=== PATIENT | female | born 1990 | race Two or more races ===

== ENCOUNTER 2024-05-10 10:28 | Inpatient (IN) | payer MEDICAID, SELFPAY ==
[2024-05-10] VITALS (26 sets, daily range): BP systolic 113–135; BP diastolic 50–80; PULSE 68–100; RESP 16–23; TEMP 36.6–36.9; O2SAT 96–99; BMI 44.5
[2024-05-10] MEDS: RINGERS LACTATED 1000 ML 1,000 ML 100 ML IV ×2 (11:23→12:12)
[2024-05-10 11:24] LABS: Amphetamine/Metham Scrn,Ur OB Negative (Negative); Benzoylecgonine Screen, Ur OB Negative (Negative); Opiate Screen,Urine OB Negative (Negative); THC Screen,Urine OB Negative (Negative)
[2024-05-10 11:35] LABS: Basophils % (Auto) 0 % (0-2.5); Eosinophils # (Auto) 0.2 Thou/mm3 (0.0-0.5); Eosinophils % (Auto) 2 % (0-10); Hematocrit 29.2 % (36.0-46.0); Hemoglobin 9.2 g/dL (12.0-16.0); Immature Granulocytes % (Auto) 1 % (0-0); Immature Granulocytes Auto 0.06 Thou/mm3 (0.00-0.00); Lymphocytes % (Auto) 20 % (10-50); Mean Corpuscular HGB Conc 31.5 g/dl (31.0-37.0); Mean Corpuscular Hemoglobin 23.9 pg (25.0-35.0); Mean Corpuscular Volume 76 fL (80-100); Monocytes # (Auto) 0.6 Thou/mm3 (0.0-0.8); Monocytes % (Auto) 6 % (0-12); Neutrophils % (Auto) 71 % (37-80); Nucleated Red Blood Cell % 0 /100 WBC (0); Platelet Count 301 Thou/mm3 (140-440); RDW Standard Deviation 44.1 fL (36.4-46.3); Red Blood Count 3.85 Miln/mm3 (4.00-5.20); White Blood Count 9.9 Thou/mm3 (3.6-11.0)
--- NOTE | 2024-05-10 11:58 | PD.LDHP ---
Documentation for date of: 05/10/24 OB Labor/Induct. HPI History of Present Illness : 3 Term pregnancies: 2 pregnancies: 0 Living children: 2 History of Abortions: Spontaneous and Elective: 0 History of sections: Yes (x 3) History of : No Comments: 33 y/o @39w2d, here for Repeat low transverse Csection. Patient denied any contraction , leaking or bleeding . Previous 3 c sections done at term. Didnot sign any sterilisation consents as she was undecided History of Present Dating criteria: LMP confirmed by 1st trimester US Adequate Care: Yes Abnormal ultrasound findings: anatomy wnl posterior placenta Labs Labs: Positive: Group Beta Strep and Negative: Hepatitis B, HIV, Chlamydia and Gonorrhea Past Medical History Surgical History SURGICAL: Positive Section (x 3) Meds Home Medications and Allergies Allergies Allergy/AdvReac Type Severity Reaction Status Date / Time No Known Allergies Allergy Verified 12/15/23 12:52 OB Exam Physical Exam Vital signs: Temp Pulse Resp BP Pulse Ox O2 Del Method 98.1 F 87 18 119/72 98 Room Air 05/10/24 11:16 05/10/24 11:16 05/10/24 11:16 05/10/24 11:16 05/10/24 11:16 05/10/24 11:16 Constitutional Constitutional: no acute distress Routine HEENT Exam Head: Present normocephalic and atraumatic Eye: Present EOMI and PERRL ENT: Present mucous membranes moist Routine Neck Exam Neck: Present supple and trachea midline Routine Cardiovascular Exam Cardiovascular: Present RRR Routine Abdominal Exam Abdominal: Present soft and normoactive bowel sounds Detailed Labor and Delivery Exam Dilation (cm): closed Comments: cat1 FHT, Ocassional contractions Routine Extremities Exam Extremities: Present full ROM Routine Skin Exam Skin: Present intact, dry and warm Routine Neurological Exam Neurological: Present alert, oriented X3 and CN II-XII intact Routine Psychiatric Exam Psychiatric: Present normal affect and normal thought process OB Results Labs 05/10/24 11:15 Labs: Short CBC 05/10/24 Range/Units 11:15 WBC 9.9 (3.6-11.0) Thou/mm3 Hgb 9.2 L (12.0-16.0) g/dL Hct 29.2 L (36.0-46.0) % Plt Count 301 (140-440) Thou/mm3 Impressions Impression: 33 y/o @39w2d, admitted for repeat low transverse section Hb 9.2 on admission Placenta posterior , no previa gtt WNL OB Assessment & Plan Additional Plan Additional Plan Comment: 1 unit PRBC on hold requested Antibiotic prophylaxis DVT prophylaxis boarded for RLTCS
[2024-05-10 12:10] LABS: Syphilis Nonreactive (Nonreactive)
[2024-05-10] MEDS: ceFAZolin/D5W 2 GM IV 2 GM/100 ML BAG IV (12:12)
[2024-05-10] MEDS: FAMOTIDINE INJ 10 MG/ML VIAL 2 ML 20 MG IV (12:12)
[2024-05-10] MEDS: CITRIC ACID/SODIUM CITR 15 ML UDC (BICITRA) 30 ML PO (12:13)
--- NOTE | 2024-05-10 15:34 | PD.LDDELS ---
Data ([facility]) Data Hx Section: Yes (x 3) : 4 Para: 3 Term: 3 : 0 : 0 Delivery Data ([facility]) Labor Data ROM Date: 05/10/24 ROM Time: 12:59 Rupture Type: AROM Amniotic Fluid: Clear Delivery Data Labor Onset Stage 1 Date: 05/10/24 Labor Onset Stage 1 Time: 12:59 Labor Onset Stage 2 Date: 05/10/24 Labor Onset Stage 2 Time: 12:59 Delivery Date: 05/10/24 Delivery Time: 13:00 Gestational age (weeks): 39 Gestational age (days): 2 Placenta Delivery Date: 05/10/24 Placenta Delivery Time: 13:01 Delivered by: Dmitry Tavarez Delivery nurse: Viki Irizarry Delivery Method Delivery: Delivery Type: Repeat Anesthesia Type Primary Anesthesia: Spinal EBL Estimated blood loss (ml): 300 Data ([facility]) Data Gender: Male Weight Grams: 4505 1 Minute Total: 9 5 Minute Total: 9
--- NOTE | 2024-05-10 15:36 | ESOP_ITS ---
Operative Note - SPORTS MEDICINE SPECIALIST Procedure Date of procedure: 05/10/24 Procedure Performed: Repeat Low transverse Csection Indication: Previous Csection x3 Pre-Op diagnosis: same Post-Op diagnosis: same Anesthesia type: Spinal Procedure description: Informed consent was obtained and the patient was taken to the operating room.? Identity was confirmed by double identifiers and she was placed on the operating table.The abdomen and perineum were prepped in the usual sterile fashion and a Marc catheter was placed to continuous drainage.? Sterile drapes were applied.??A Pfannenstiel skin incision was made with a scalpel and carried to the subcutaneous fat up to the rectus fascia.? The rectus fascia was incised on either side of the midline and the incisions were extended bilaterally.? The fascia was gently dissected off the ventral surface of the rectus muscle both superiorly and inferiorly. Carefully a peritioneal window created hysterotomy incision made and extended bluntly with finger. Rupture of membranes revealed clear fluid. The baby was found vertex presentation and was delivered via vertex. The umbilical cord , was doubly clamped, divided and the was handed over to the waiting team.? True knot seen . The placenta delivered by controlled cord traction . The interior of the uterus was now thorougly cleaned of all blood and debris and membranes.?The? hysterotomy was closed using 0 vicryl suture in double layers. Once the repair was completed the hysterotomy was inspected, was noted to be adequately hemostatic. The rectus fascia was repaired using Vicryl 0 in a running fashion.? The subcutaneous layer was now, approximated with 3-0 vicryl in double layers.? All bleeding points were cauterized using the Bovie.?The skin was closed using 4-0 Monocryl in a subcuticular fashion.? The skin was cleaned and a sterile dressing was applied. The patient was now undraped, the abdomen and back were thoroughly cleaned and she was now transferred to the recovery room in a stable Estimated blood loss (ml): 300 Surgical staff Operation Date: 05/10/24 12:45 Case Staff [employer] PRODUCT MANAGER: Nakul Jones RNrepertoire manager: Janiya Gomez Diagnosis Problem List Completed Was Problem List Reviewed/Reconciled?: Yes
[2024-05-10 18:08] LABS: Basophils % (Auto) 0 % (0-2.5); Eosinophils % (Auto) 0 % (0-10); Hematocrit 29.1 % (36.0-46.0); Immature Granulocytes % (Auto) 1 % (0-0); Immature Granulocytes Auto 0.07 Thou/mm3 (0.00-0.00); Lymphocytes # (Auto) 1.8 Thou/mm3 (1.0-4.8); Lymphocytes % (Auto) 11 % (10-50); Mean Corpuscular HGB Conc 30.6 g/dl (31.0-37.0); Mean Corpuscular Hemoglobin 23.9 pg (25.0-35.0); Mean Corpuscular Volume 78 fL (80-100); Monocytes # (Auto) 0.7 Thou/mm3 (0.0-0.8); Monocytes % (Auto) 4 % (0-12); Neutrophils # (Auto) 12.9 Thou/mm3 (1.8-7.7); Neutrophils % (Auto) 83 % (37-80); Nucleated Red Blood Cell % 0 /100 WBC (0); Platelet Count 259 Thou/mm3 (140-440); RDW Standard Deviation 46.1 fL (36.4-46.3); Red Blood Count 3.72 Miln/mm3 (4.00-5.20); White Blood Count 15.5 Thou/mm3 (3.6-11.0)
[2024-05-10 18:21] LABS: Hemoglobin 8.9 g/dL (12.0-16.0)
[2024-05-10] MEDS: OXYTOCIN in NS 20 units 20 UNIT/1,000 ML BAG 125 UNIT IV (20:51)
[2024-05-11 04:00] VITALS: BP 127/77; PULSE 76; RESP 20; TEMP 36.4; O2SAT 99
[2024-05-11 05:16] LABS: Basophils % (Auto) 0 % (0-2.5); Eosinophils # (Auto) 0.2 Thou/mm3 (0.0-0.5); Eosinophils % (Auto) 2 % (0-10); Hemoglobin 9.6 g/dL (12.0-16.0); Immature Granulocytes % (Auto) 1 % (0-0); Immature Granulocytes Auto 0.08 Thou/mm3 (0.00-0.00); Lymphocytes # (Auto) 2.4 Thou/mm3 (1.0-4.8); Lymphocytes % (Auto) 21 % (10-50); Mean Corpuscular Hemoglobin 24.2 pg (25.0-35.0); Mean Corpuscular Volume 78 fL (80-100); Monocytes # (Auto) 0.7 Thou/mm3 (0.0-0.8); Monocytes % (Auto) 7 % (0-12); Neutrophils % (Auto) 70 % (37-80); Nucleated Red Blood Cell % 0 /100 WBC (0); Platelet Count 252 Thou/mm3 (140-440); RDW Standard Deviation 45.9 fL (36.4-46.3); Red Blood Count 3.96 Miln/mm3 (4.00-5.20); White Blood Count 11.3 Thou/mm3 (3.6-11.0)
--- NOTE | 2024-05-11 06:39 | PD.LDPPPRG ---
Subjective Subjective Interval history: Patient is doing well and seen at the bedside. Patient denies any fever, vaginal bleeding with clots. Has been eating and drinking well. Has not been ambulating yet Exam Vital Signs Temp Pulse Resp BP Pulse Ox O2 Del Method 97.8 F 79 20 135/76 H 98 Room Air 05/10/24 23:39 05/10/24 23:39 05/10/24 23:39 05/10/24 23:39 05/10/24 23:39 05/10/24 23:39 Constitutional Constitutional: no acute distress Routine HEENT Exam Head: Present normocephalic and atraumatic Eye: Present EOMI and PERRL ENT: Present mucous membranes moist Routine Neck Exam Neck: Present supple and trachea midline Routine Respiratory Exam Respiratory: Present chest non-tender, lungs clear, normal breath sounds and no resp distress Routine Cardiovascular Exam Cardiovascular: Present RRR Routine Abdominal Exam Abdominal: Present soft and normoactive bowel sounds Routine Extremities Exam Extremities: Present full ROM Routine Skin Exam Skin: Present intact, dry and warm Routine Neurological Exam Neurological: Present alert, oriented X3 and CN II-XII intact Routine Psychiatric Exam Psychiatric: Present normal affect and normal thought process Objective Labs 05/11/24 04:46 Labs: Laboratory Results - last 24 hr 05/10/24 05/10/24 05/10/24 10:41 11:15 17:54 WBC 9.9 15.5 H D RBC 3.85 L 3.72 L Hgb 9.2 L 8.9 L Hct 29.2 L 29.1 L MCV 76 L 78 L MCH 23.9 L 23.9 L MCHC 31.5 30.6 L RDW Std Deviation 44.1 46.1 Plt Count 301 259 D Neut % (Auto) 71 83 H Lymph % (Auto) 20 11 [place] % (Auto) 6 4 Eos % (Auto) 2 0 Baso % (Auto) 0 0 Neut # (Auto) 7.0 12.9 H Lymph # (Auto) 2.0 1.8 [place] # (Auto) 0.6 0.7 Eos # (Auto) 0.2 0.0 Baso # (Auto) 0.0 0.0 Immature Gran # (Auto) 0.06 H 0.07 H Absolute Nucleated RBC 0.00 0.00 Immature Gran % 1 H 1 H Nucleated RBC % 0 0 Urine Opiates Screen Negative U Amphetamin/Meth Scrn Negative U Cocaine Metab Screen Negative U Marijuana (THC) Screen Negative Syphilis Serology Nonreactive Blood Type A Positive Antibody Screen NEGATIVE Crossmatch See Detail Blood Bank Wristband ID Yes 05/11/24 04:46 WBC 11.3 H RBC 3.96 L Hgb 9.6 L Hct 31.0 L MCV 78 L MCH 24.2 L MCHC 31.0 RDW Std Deviation 45.9 Plt Count 252 Neut % (Auto) 70 Lymph % (Auto) 21 [place] % (Auto) 7 Eos % (Auto) 2 Baso % (Auto) 0 Neut # (Auto) 8.0 H Lymph # (Auto) 2.4 [place] # (Auto) 0.7 Eos # (Auto) 0.2 Baso # (Auto) 0.0 Immature Gran # (Auto) 0.08 H Absolute Nucleated RBC 0.00 Immature Gran % 1 H Nucleated RBC % 0 Urine Opiates Screen U Amphetamin/Meth Scrn U Cocaine Metab Screen U Marijuana (THC) Screen Syphilis Serology Blood Type Antibody Screen Crossmatch Blood Bank Wristband ID Assessment & Plan Assessment Comment Assessment comment: 33-year-old s/p repeat low-transverse , postop day 1 Vital signs stable Hemoglobin appropriate drop, preop anemia 1 unit of blood transfusion given pending repeat hemoglobin Meeting all post op milestones pending passing gas Plan Comment Plan Comment: Encourage ambulation Continue inpatient care Anticipate discharge tomorrow Time Spent With Patient Time: Total time spent is greater than 50% in coordination of care (as documented) at patient's floor/unit and/or counseling patient:
[2024-05-11 08:30] VITALS: BP 106/66; PULSE 79; RESP 18; TEMP 36.7; O2SAT 99
[2024-05-11 12:35] VITALS: BP 121/71; PULSE 85; RESP 17; TEMP 36.7; O2SAT 97
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
[2024-05-11] MEDS: HYDROcodone/APAP 5/325 TABLET 2 TAB PO (16:01)
[2024-05-11 20:24] VITALS: BP 141/84; PULSE 85; RESP 18; TEMP 36.8; O2SAT 97
[2024-05-11] MEDS: IBUPROFEN TAB 400 MG TABLET 800 MG PO (23:32)
[2024-05-12 03:23] VITALS: BP 126/79; PULSE 78; RESP 17; TEMP 36.7; O2SAT 96
[2024-05-12 08:00] VITALS: BP 127/75; PULSE 76; RESP 18; TEMP 37.1; O2SAT 96
--- NOTE | 2024-05-12 09:34 | ESDS_ITS ---
DS: Providers Provider Date of admission: 05/10/24 10:28 Primary care physician: Jose M Portillo MD Admitting Provider: Dmitry Tavarez MD Attending Provider on Admission: Dmitry Tavarez MD Consults: 05/10/24 12:09 Referral Routine Comment: Attending Provider on DC: Hemalatha Tabares MD Discharging Provider: Hemalatha Tabares MD DS: Diagnosis Discharge Diagnosis (1) delivery delivered: Status: Acute (2) Iron deficiency anemia: Status: Acute (3) Previous delivery affecting : Status: Acute (4) Blood transfusion during current hospitalization: Status: Acute Problem List Completed Was Problem List Reviewed/Reconciled?: Yes Summary/Hosp Course Brief History: Patient is a 33yo [id number] s/p uncomplicated section at 39wk. She received 1 unit of pRBCs after delivery for hgb 8.9 with improvement to 9.6. She has had an otherwise uncomplicated post-operative course, meeting all milestones and feels ready for discharge home. She is ambulating without lightheadedness, tolerating regular diet no n/v, spontaneously voiding without issue. She has no chest pain or shortness of breath. No fevers or chills. Pain well controlled. Vitals normal, benign exam. Hemodynamically stable with no evidence of infection. Peripartum Data Procedures: Procedures Operation Date: 05/10/24 12:45 Actual Procedure Side Surgeon p in OB Not Applicable Dmitry Tavarez MD Status at Discharge Functional status at discharge: independent ambulation Overall status at discharge: patient is back to baseline Time Spent with Patient Time attestation: Total time spent providing and/or coordinating discharge services: Exam Vital Signs Temp Pulse Resp BP Pulse Ox O2 Del Method 98.0 F 78 17 126/79 96 Room Air 05/12/24 03:23 05/12/24 03:23 05/12/24 03:23 05/12/24 03:23 05/12/24 03:23 05/12/24 03:23 Narrative Exam General: well developed, well nourished, no acute distress, conversant Cardiac: normal heart rate Lungs: breathing without distress Abdomen: soft, post-gravid, non-tender, no rebound or guarding, pfannenstiel incision covered by dry/clean/intact prineo bandage. Incision well reapproximated. No erythema, drainage or induration. Fundus firm at u-2cm. Extremities: no pain with palpation of calves, trace edema of BLE Discharge Plan Plan Patient Disposition: HOME (Self Care) Patient condition on transfer: Stable Prescriptions/Referrals Prescriptions/Med Rec: New hydrocodone-acetaminophen 5-325 mg Tablet 1 tab PO Q6HR MDD 4 tablets PRN (Reason: Patient rated pain 9 to 10) 10 Days Qty: 12 0RF ibuprofen 800 mg tablet 800 mg PO Q8H PRN (Reason: See Comments) 10 Days Qty: 30 0RF polyethylene glycol 3350 17 gram powder in packet 17 g PO QDAY Qty: 14 0RF ferrous sulfate 325 mg (65 mg iron) tablet 325 mg PO QDAY Qty: 30 0RF Discontinued hydrocodone-acetaminophen 5-325 mg tablet 1 tab PO Q4H MDD 5 PRN (Reason: pain) Qty: 20 0RF cephalexin 500 mg capsule 500 mg PO TID Qty: 21 0RF Referrals: Jose M Portillo MD [Primary Care Provider] - Patient/Caregiver Discharge Instructions Discharge Activity: activity as tolerated and other Other Discharge Activity Instructions:: vaginal rest and no heavy lifting greater than 10 pounds for 6 [address] while taking narcotic. keep incision clean and dry, do not submerge Other Discharge Diet Instructions: Regular Education Materials: C Section Dc Print Language: [place] Activity Restrictions/Additional Instructions: follow up in 1 week for incision check with Dr. Tavarez, call for appointment if one is not already scheduled Stand Alone Forms: Deb Award Info., Patient Portal Info Letter Discharge Order Discharge Orders: Discharge (Routine); Ordered 05/12/24 Ordered By: Hemalatha Tabares Planned Discharge Date 05/12/24 (2) Iron deficiency anemia Qualifiers: Iron deficiency anemia type: other iron deficiency Qualified Code(s): D50.8 - Other iron deficiency anemias
== END 2024-05-12 13:22 | disposition home or self-care (01) | DRG 540 ==
LOC: S4SX 11:52 → S4NX 12:54
PROVIDERS: Admitting Provider Student in an Organized Health Care Education/Training Program; PCP Family Medicine; Visit Provider Student in an Organized Health Care Education/Training Program
PROC: 10D00Z1 Extraction of Products of Conception, Low, Open Approach (ICD-10-PCS; CPT 59514; principal; 2024-05-10 12:30)
DX: O34.211 Maternal care for low transverse scar from previous cesarean delivery (principal); O90.81 Anemia of the puerperium; D50.8 Other iron deficiency anemias; Z37.0 Single live birth; Z3A.39 39 weeks gestation of pregnancy; O99.824 Streptococcus B carrier state complicating childbirth
CPT/HCPCS: 36415; 80307; 85025; 86780; 86850; 86900; 86901; 86923; J0689; J2274; J2371; J2590; J3490; J7120; P9016; A9270; J2270